=== PATIENT | male | born 1970 | race Caucasian/White ===

== ENCOUNTER 2018-05-05 12:35 | Inpatient (IN) | payer MEDICARE ==
[2018-05-05] MEDS ORDERED: OLANZapine 10 MG TAB PO (15:00)
[2018-05-05] MEDS ORDERED: MOM 30ML SUSPENSION UDC PO (15:00)
[2018-05-05] MEDS ORDERED: ACETAMINOPHEN TAB 650MG DOSE (2X325MG) PO (15:00)
[2018-05-05] MEDS ORDERED: MAALOX 30 ML SUSP *UDC PO (15:00)
[2018-05-05] MEDS: LORazepam 2 MG TAB PO (16:17)
[2018-05-05] MEDS: LORazepam 1 MG TAB PO (23:02)
[2018-05-05] MEDS: traZODone 50 MG TAB PO (23:56)
[2018-05-06] MEDS: HALOPERIDOL 5 MG TAB PO ×2 (09:50→20:30)
[2018-05-06] MEDS: TRIHEXYPHENIDYL 2 MG TAB PO ×2 (10:14→20:30)
[2018-05-06 11:26] LABS: HEMATOCRIT 45.5 % (42.0-52.0); HEMOGLOBIN 15.9 g/dl (13.5-17.5); MEAN CORPUSCULAR HEMOGLOBIN 32.3 pg (27.0-33.0); MEAN CORPUSCULAR HGB CONC 34.9 g/dl (32.0-36.5); MEAN CORPUSCULAR VOLUME 92.3 fl (80.0-96.0); PLATELET COUNT, AUTOMATED 208 10^3/uL (150-450); RED BLOOD COUNT 4.93 10^6/uL (4.30-6.10); RED CELL DISTRIBUTION WIDTH 13.2 % (11.5-14.5); WHITE BLOOD COUNT 9.5 10^3/uL (4.0-10.0)
[2018-05-06 12:04] LABS: ALBUMIN 3.4 GM/DL (3.2-5.2); ALKALINE PHOSPHATASE 65 U/L (45-117); ALT/SGPT 25 U/L (12-78); ANION GAP 6 MEQ/L (8-16); AST/SGOT 14 U/L (7-37); BILIRUBIN,TOTAL 1.9 MG/DL (0.2-1.0); BLOOD UREA NITROGEN 16 MG/DL (7-18); CALCIUM LEVEL 8.9 MG/DL (8.5-10.1); CARBON DIOXIDE LEVEL 30 MEQ/L (21-32); CHLORIDE LEVEL 103 MEQ/L (98-107); CREATININE FOR GFR 1.14 MG/DL (0.70-1.30); GLOMERULAR FILTRATION RATE > 60.0 (>60); GLUCOSE, FASTING 95 MG/DL (70-100); SODIUM LEVEL 139 MEQ/L (136-145); TOTAL PROTEIN 6.5 GM/DL (6.4-8.2)
[2018-05-06] MEDS: traZODone 50 MG TAB PO (20:30)
[2018-05-06] MEDS: PILL CRUSHER/CUTTER 1 EACH XX (20:31)
[2018-05-07] MEDS: TRIHEXYPHENIDYL 2 MG TAB PO ×2 (08:43→20:25)
[2018-05-07] MEDS: HALOPERIDOL 5 MG TAB PO ×2 (08:43→20:25)
[2018-05-07] MEDS ORDERED: LORazepam 0.5 MG TAB PO (13:00)
[2018-05-07] MEDS: traZODone 100 MG TAB PO (20:26)
[2018-05-08] MEDS: HALOPERIDOL 5 MG TAB PO ×2 (08:08→20:54)
[2018-05-08] MEDS: TRIHEXYPHENIDYL 2 MG TAB PO ×2 (08:08→20:54)
[2018-05-08] MEDS: traZODone 100 MG TAB PO (20:54)
[2018-05-09] MEDS: TRIHEXYPHENIDYL 2 MG TAB PO ×2 (08:29→21:21)
[2018-05-09] MEDS: HALOPERIDOL 5 MG TAB PO ×2 (08:29→21:21)
[2018-05-09] MEDS: traZODone 100 MG TAB PO (21:21)
[2018-05-10] MEDS: HALOPERIDOL 5 MG TAB PO ×2 (08:27→20:31)
[2018-05-10] MEDS: TRIHEXYPHENIDYL 2 MG TAB PO ×2 (08:28→20:31)
[2018-05-11] MEDS: HALOPERIDOL 5 MG TAB PO ×2 (08:10→21:11)
[2018-05-11] MEDS: TRIHEXYPHENIDYL 2 MG TAB PO ×2 (08:11→21:11)
[2018-05-11] MEDS: PILL CRUSHER/CUTTER 1 EACH XX (21:10)
[2018-05-11] MEDS: traZODone 100 MG TAB PO (21:11)
[2018-05-12] MEDS: HALOPERIDOL 5 MG TAB PO (08:02)
[2018-05-12] MEDS: TRIHEXYPHENIDYL 2 MG TAB PO (08:02)
[2018-05-12] MEDS: HALOPERIDOL DECANOATE 100 MG/ML VIAL (J1631) IM (09:56)
== END 2018-05-12 13:00 | disposition home or self-care (01) | DRG 885 ==
LOC: M ED 12:35 → M ED INP 14:54 → M PSY 17:41
DX: F25.0 Schizoaffective disorder, bipolar type (principal); F17.210 Nicotine dependence, cigarettes, uncomplicated; F12.10 Cannabis abuse, uncomplicated; Z88.0 Allergy status to penicillin; Z91.5 Personal history of self-harm; Z79.899 Other long term (current) drug therapy; Z59.9 Problem related to housing and economic circumstances, unspecified

== ENCOUNTER → 2020-05-23 | Outpatient (CLI) | payer MEDICARE ==
[~2020-05-23] MED LIST: Artane PO; HALD100I2 IM; HALD50IN4 IM; HYDR50TA70 PO; TRAZ-252 PO; TRAZ1TAB12 PO; TRIH5TAB PO
== END ==
LOC: M LABSMTC 13:15
PROVIDERS: ATTEND Family Medicine
DX: Z20.828 Contact with and (suspected) exposure to other viral communicable diseases (principal)

== ENCOUNTER 2021-07-03 17:40 | Emergency (ER) | payer MEDICARE ==
[~2021-07-03] VITALS: Ht 177.8 cm; Wt 90.9 kg
[2021-07-03 19:32] LABS: HEMATOCRIT 49.7 % (42.0-52.0); HEMOGLOBIN 18.1 g/dl (13.5-17.5); MEAN CORPUSCULAR HEMOGLOBIN 32.3 pg (27.0-33.0); MEAN CORPUSCULAR HGB CONC 36.4 g/dl (32.0-36.5); MEAN CORPUSCULAR VOLUME 88.6 fl (80.0-96.0); PLATELET COUNT, AUTOMATED 222 10^3/uL (150-450); RED BLOOD COUNT 5.61 10^6/uL (4.30-6.10); WHITE BLOOD COUNT 10.3 10^3/uL (4.0-10.0)
[2021-07-03 19:52] LABS: ACETAMINOPHEN LEVEL < 2.0 UG/ML (10.0-30.0); ALBUMIN 3.9 GM/DL (3.2-5.2); ALT/SGPT 87 U/L (12-78); BILIRUBIN,DIRECT 0.6 MG/DL (0.0-0.2); BILIRUBIN,TOTAL 2.4 MG/DL (0.2-1.0); BLOOD UREA NITROGEN 7 MG/DL (7-18); CALCIUM LEVEL 9.6 MG/DL (8.5-10.1); CARBON DIOXIDE LEVEL 24 MEQ/L (21-32); CHLORIDE LEVEL 103 MEQ/L (98-107); ETHYL ALCOHOL (ETHANOL) < 0.003 % (0.000-0.010); GLOMERULAR FILTRATION RATE > 60.0 (>56); GLUCOSE, FASTING 100 MG/DL (70-100); POTASSIUM SERUM 3.7 MEQ/L (3.5-5.1); SALICYLATE LEVEL < 1.7 MG/DL (5.0-30.0); SODIUM LEVEL 135 MEQ/L (136-145); THYROID STIMULATING HORMONE 0.917 uIU/ML (0.358-3.740); TOTAL PROTEIN 7.5 GM/DL (6.4-8.2)
[2021-07-03 20:06] LABS: AMPHETAMINES LEVEL URINE NEGATIVE (NEGATIVE); BARBITURATES URINE NEGATIVE (NEGATIVE); BENZODIAZEPINES URINE NEGATIVE (NEGATIVE); CANNABINOIDS URINE POSITIVE (NEGATIVE); COCAINE METABOLITE URINE NEGATIVE (NEGATIVE); METHADONE URINE NEGATIVE (NEGATIVE); OPIATES URINE NEGATIVE (NEGATIVE); PHENCYCLIDINE URINE NEGATIVE (NEGATIVE)
[2021-07-03] MEDS ORDERED: HOME MED LIST COMPLETE! XX SCH (20:40)
[2021-07-03] MEDS ORDERED: LORazepam 2 MG TAB PO STA (20:48)
[2021-07-03 21:34] LABS: RSV AMPLIFICATION NEGATIVE (NEGATIVE)
[2021-07-04] MEDS ORDERED: OLANZapine ORAL DISINTEGRATING TAB 5MG PO ONE (09:35)
[2021-07-04 23:02] VITALS: BP 125/82
== END 2021-07-04 23:06 ==
LOC: M ED 17:40
DX: F29 Unspecified psychosis not due to a substance or known physiological condition (principal); F20.9 Schizophrenia, unspecified; F31.9 Bipolar disorder, unspecified; F17.200 Nicotine dependence, unspecified, uncomplicated; Z88.0 Allergy status to penicillin

== ENCOUNTER 2021-08-18 20:01 | Inpatient (IN) | payer MEDICARE ==
[~2021-08-18] VITALS: Ht 177.8 cm; Wt 82.2 kg
[2021-08-18 20:57] LABS: HEMATOCRIT 46.7 % (42.0-52.0); HEMOGLOBIN 16.8 g/dl (13.5-17.5); MEAN CORPUSCULAR HEMOGLOBIN 32.9 pg (27.0-33.0); MEAN CORPUSCULAR VOLUME 91.6 fl (80.0-96.0); PLATELET COUNT, AUTOMATED 209 10^3/uL (150-450)
[2021-08-18 21:36] LABS: ACETAMINOPHEN LEVEL < 2.0 UG/ML (10.0-30.0); ALBUMIN 3.6 GM/DL (3.2-5.2); ALT/SGPT 36 U/L (12-78); BILIRUBIN,DIRECT 0.5 MG/DL (0.0-0.2); BILIRUBIN,TOTAL 2.1 MG/DL (0.2-1.0); BLOOD UREA NITROGEN 12 MG/DL (7-18); CALCIUM LEVEL 8.9 MG/DL (8.5-10.1); CARBON DIOXIDE LEVEL 28 MEQ/L (21-32); CHLORIDE LEVEL 106 MEQ/L (98-107); CREATININE FOR GFR 0.97 MG/DL (0.70-1.30); ETHYL ALCOHOL (ETHANOL) 0.026 % (0.000-0.010); GLOMERULAR FILTRATION RATE > 60.0 (>56); GLUCOSE, FASTING 91 MG/DL (70-100); POTASSIUM SERUM 3.8 MEQ/L (3.5-5.1); SALICYLATE LEVEL < 1.7 MG/DL (5.0-30.0); SODIUM LEVEL 140 MEQ/L (136-145); THYROID STIMULATING HORMONE 0.822 uIU/ML (0.358-3.740)
[2021-08-18 21:42] LABS: RSV AMPLIFICATION NEGATIVE (NEGATIVE)
[2021-08-18 22:23] LABS: LITHIUM LEVEL < 0.20 MEQ/L (0.60-1.20)
[2021-08-18] MEDS ORDERED: HOME MED LIST COMPLETE! XX SCH (22:30)
[2021-08-18 23:22] LABS: AMPHETAMINES LEVEL URINE NEGATIVE (NEGATIVE); BARBITURATES URINE NEGATIVE (NEGATIVE); BENZODIAZEPINES URINE NEGATIVE (NEGATIVE); CANNABINOIDS URINE POSITIVE (NEGATIVE); COCAINE METABOLITE URINE NEGATIVE (NEGATIVE); METHADONE URINE NEGATIVE (NEGATIVE); OPIATES URINE NEGATIVE (NEGATIVE); PHENCYCLIDINE URINE NEGATIVE (NEGATIVE)
[2021-08-19] MEDS ORDERED: MOM 30ML SUSPENSION UDC PO PRN (04:40)
[2021-08-19] MEDS ORDERED: MAALOX 30 ML SUSP *UDC PO PRN (04:40)
[2021-08-19] MEDS ORDERED: ACETAMINOPHEN TAB 650MG DOSE (2X325MG) PO PRN (04:40)
[2021-08-19 05:14] VITALS: BP 119/70
[2021-08-19] MEDS: LURASIDONE HCL 40MG TAB (LATUDA) PO SCH (08:00)
[2021-08-19] MEDS ORDERED: LORazepam 2 MG TAB PO PRN (08:50)
[2021-08-19] MEDS: MULTIVITAMINS/MINERALS THERAP 1 TAB PO SCH (09:41)
[2021-08-19] MEDS: LITHIUM CARBONATE 150 MG CAP PO SCH ×3 (09:41→20:39)
[2021-08-19] MEDS: FOLIC ACID 1 MG TAB PO SCH (09:41)
[2021-08-19] MEDS: THIAMINE 100 MG TAB PO SCH ×2 (09:41→20:39)
[2021-08-19 10:02] VITALS: BP 120/83
[2021-08-19 13:57] LABS: BASO # 0.1 10^3/uL (0.0-0.2); BASO % 0.9 % (0.0-1.0); EOS # 0.2 10^3/uL (0.0-0.5); EOS % 3.3 % (0.0-3.0); HEMATOCRIT 43.9 % (42.0-52.0); HEMOGLOBIN 15.8 g/dl (13.5-17.5); LYMPH # 1.7 10^3/uL (1.5-5.0); LYMPH % 26.9 % (24.0-44.0); MEAN CORPUSCULAR HEMOGLOBIN 33.5 pg (27.0-33.0); MONO # 0.4 10^3/uL (0.0-0.8); MONO % 6.9 % (2.0-8.0); NEUTROPHILS # 3.9 10^3/uL (1.5-8.5); NEUTROPHILS % 61.7 % (36.0-66.0); PLATELET COUNT, AUTOMATED 187 10^3/uL (150-450); RED BLOOD COUNT 4.72 10^6/uL (4.30-6.10); WHITE BLOOD COUNT 6.4 10^3/uL (4.0-10.0)
[2021-08-19 14:19] LABS: ALBUMIN 3.6 GM/DL (3.2-5.2); ALT/SGPT 35 U/L (12-78); BILIRUBIN,TOTAL 2.3 MG/DL (0.2-1.0); BLOOD UREA NITROGEN 12 MG/DL (7-18); CALCIUM LEVEL 8.9 MG/DL (8.5-10.1); CARBON DIOXIDE LEVEL 33 MEQ/L (21-32); CHLORIDE LEVEL 104 MEQ/L (98-107); GLOMERULAR FILTRATION RATE > 60.0 (>56); GLUCOSE, FASTING 94 MG/DL (70-100); MAGNESIUM LEVEL 2.1 MG/DL (1.8-2.4); POTASSIUM SERUM 3.7 MEQ/L (3.5-5.1); SODIUM LEVEL 140 MEQ/L (136-145); TOTAL PROTEIN 6.6 GM/DL (6.4-8.2)
[2021-08-19 16:20] VITALS: BP_SYST 113; BP_SYST 122; BP_DIAS 60; BP_DIAS 77
[2021-08-19 19:19] VITALS: BP 122/74
[2021-08-20 06:42] VITALS: BP 98/52
[2021-08-20] MEDS: LURASIDONE HCL 40MG TAB (LATUDA) PO SCH (08:00)
[2021-08-20 08:06] LABS: CHOLESTEROL RISK RATIO 3.106 (<5)
[2021-08-20] MEDS ORDERED: FLUBLOK(EGG FREE)(QUAD)INFLUENZA VACC 0.5ML SYRINGE 18YRS & OLDER IM ONE (09:00)
[2021-08-20] MEDS: FOLIC ACID 1 MG TAB PO SCH (09:20)
[2021-08-20] MEDS: LITHIUM CARBONATE 150 MG CAP PO SCH (09:20)
[2021-08-20] MEDS: THIAMINE 100 MG TAB PO SCH ×2 (09:20→20:40)
[2021-08-20] MEDS: MULTIVITAMINS/MINERALS THERAP 1 TAB PO SCH (09:20)
[2021-08-20] MEDS ORDERED: OLANZapine ORAL DISINTEGRATING TAB 5MG PO PRN (12:35)
[2021-08-20] MEDS: hydrOXYzine 50 MG TAB PO PRN ×2 (12:54→19:10)
[2021-08-20 13:53] VITALS: BP 135/80
[2021-08-20 13:54] VITALS: BP 135/80
[2021-08-20] MEDS: NICOTINE POLACRILEX 2 MG GUM PO PRN ×2 (16:53→19:10)
[2021-08-20 18:14] VITALS: BP 130/82
[2021-08-20] MEDS ORDERED: LITHIUM CARBONATE 300 MG CAP PO SCH (21:00)
[2021-08-21] MEDS: traZODone 50 MG TAB PO PRN (01:16)
[2021-08-21] MEDS: hydrOXYzine 50 MG TAB PO PRN ×4 (01:16→20:39)
[2021-08-21 07:01] VITALS: BP 99/69
[2021-08-21] MEDS: LURASIDONE HCL 40MG TAB (LATUDA) PO SCH (08:00)
[2021-08-21] MEDS: NICOTINE POLACRILEX 2 MG GUM PO PRN ×4 (09:02→20:39)
[2021-08-21] MEDS: LITHIUM CARBONATE 300 MG CAP PO SCH ×3 (09:02→20:39)
[2021-08-21 17:53] VITALS: BP 124/63
[2021-08-22] MEDS: hydrOXYzine 50 MG TAB PO PRN ×3 (06:41→21:38)
[2021-08-22] MEDS: NICOTINE POLACRILEX 2 MG GUM PO PRN ×4 (06:41→21:38)
[2021-08-22 07:07] VITALS: BP 123/67
[2021-08-22] MEDS: LURASIDONE HCL 40MG TAB (LATUDA) PO SCH (08:00)
[2021-08-22] MEDS: LITHIUM CARBONATE 300 MG CAP PO SCH ×3 (08:39→20:18)
[2021-08-22 18:00] VITALS: BP 138/82
[2021-08-22] MEDS: traZODone 50 MG TAB PO PRN (21:39)
[2021-08-23 06:00] VITALS: BP 131/86
[2021-08-23] MEDS: hydrOXYzine 50 MG TAB PO PRN ×3 (07:38→20:38)
[2021-08-23] MEDS: LITHIUM CARBONATE 300 MG CAP PO SCH ×4 (07:39→20:38)
[2021-08-23] MEDS: LURASIDONE HCL 40MG TAB (LATUDA) PO SCH (08:00)
[2021-08-23] MEDS: NICOTINE POLACRILEX 2 MG GUM PO PRN ×4 (12:49→20:38)
[2021-08-23 18:15] VITALS: BP 120/86
[2021-08-23] MEDS: traZODone 50 MG TAB PO PRN (20:38)
[2021-08-24 06:31] VITALS: BP 123/67
[2021-08-24] MEDS: LURASIDONE HCL 40MG TAB (LATUDA) PO SCH (08:00)
[2021-08-24] MEDS: hydrOXYzine 50 MG TAB PO PRN ×2 (09:00→19:30)
[2021-08-24] MEDS: LITHIUM CARBONATE 300 MG CAP PO SCH ×4 (09:00→20:20)
[2021-08-24] MEDS: NICOTINE POLACRILEX 2 MG GUM PO PRN ×4 (09:42→22:50)
[2021-08-24 19:02] VITALS: BP 126/86
[2021-08-25 06:24] VITALS: BP 120/72
[2021-08-25] MEDS: LURASIDONE HCL 40MG TAB (LATUDA) PO SCH (08:00)
[2021-08-25] MEDS ORDERED: NICO2GUM PO (08:22)
[2021-08-25] MEDS ORDERED: HYDR50TA70 PO (08:22)
[2021-08-25] MEDS ORDERED: TRAZ-252 PO (08:22)
[2021-08-25] MEDS ORDERED: LITH300C PO ×2 (08:22)
[2021-08-25] MEDS: LITHIUM CARBONATE 300 MG CAP PO SCH (08:40)
== END 2021-08-25 13:24 | disposition home or self-care (01) | DRG 885 ==
LOC: M ED 20:01 → M ED INP 08-19 04:37 → M PSY 08-19 05:09
PROVIDERS: ADMIT Psychiatry & Neurology Psychiatry; ATTEND Psychiatry & Neurology Psychiatry
DX: F31.9 Bipolar disorder, unspecified (principal); R45.851 Suicidal ideations; F10.10 Alcohol abuse, uncomplicated; F12.10 Cannabis abuse, uncomplicated; Z91.51 Personal history of suicidal behavior; Z62.810 Personal history of physical and sexual abuse in childhood; F17.210 Nicotine dependence, cigarettes, uncomplicated; R94.31 Abnormal electrocardiogram [ECG] [EKG]; Z20.822 Contact with and (suspected) exposure to COVID-19; Z88.0 Allergy status to penicillin; Z91.14 Patient's other noncompliance with medication regimen

== ENCOUNTER 2021-09-26 09:47 | Inpatient (IN) | payer MEDICARE ==
[~2021-09-26] VITALS: Ht 177.8 cm; Wt 81.8 kg
[~2021-09-26 09:47] MED LIST changes: +LITH300C PO; +NICO2GUM PO
[2021-09-26 10:50] LABS: HEMATOCRIT 46.6 % (42.0-52.0); HEMOGLOBIN 16.7 g/dl (13.5-17.5); MEAN CORPUSCULAR HGB CONC 35.8 g/dl (32.0-36.5); MEAN CORPUSCULAR VOLUME 92.1 fl (80.0-96.0); PLATELET COUNT, AUTOMATED 178 10^3/uL (150-450); RED BLOOD COUNT 5.06 10^6/uL (4.30-6.10); WHITE BLOOD COUNT 6.8 10^3/uL (4.0-10.0)
[2021-09-26 11:13] LABS: AMPHETAMINES LEVEL URINE NEGATIVE (NEGATIVE); BARBITURATES URINE NEGATIVE (NEGATIVE); BENZODIAZEPINES URINE NEGATIVE (NEGATIVE); CANNABINOIDS URINE POSITIVE (NEGATIVE); COCAINE METABOLITE URINE NEGATIVE (NEGATIVE); METHADONE URINE NEGATIVE (NEGATIVE); OPIATES URINE NEGATIVE (NEGATIVE); PHENCYCLIDINE URINE NEGATIVE (NEGATIVE)
[2021-09-26 11:22] LABS: BLOOD UREA NITROGEN 9 MG/DL (7-18); CARBON DIOXIDE LEVEL 30 MEQ/L (21-32); CHLORIDE LEVEL 99 MEQ/L (98-107); CREATININE FOR GFR 1.09 MG/DL (0.70-1.30); GLOMERULAR FILTRATION RATE > 60.0 (>56); GLUCOSE, FASTING 98 MG/DL (70-100); POTASSIUM SERUM 3.6 MEQ/L (3.5-5.1); SODIUM LEVEL 137 MEQ/L (136-145)
[2021-09-26 11:23] LABS: ACETAMINOPHEN LEVEL < 2.0 UG/ML (10.0-30.0); ALBUMIN 3.9 GM/DL (3.2-5.2); ALT/SGPT 141 U/L (12-78); BILIRUBIN,DIRECT 0.3 MG/DL (0.0-0.2); BILIRUBIN,TOTAL 1.1 MG/DL (0.2-1.0); ETHYL ALCOHOL (ETHANOL) < 0.003 % (0.000-0.010); SALICYLATE LEVEL < 1.7 MG/DL (5.0-30.0); TOTAL PROTEIN 7.6 GM/DL (6.4-8.2)
[2021-09-26 11:59] LABS: LITHIUM LEVEL < 0.20 MEQ/L (0.60-1.20)
[2021-09-26 12:00] LABS: RSV AMPLIFICATION NEGATIVE (NEGATIVE)
[2021-09-26] MEDS ORDERED: traZODone 50 MG TAB PO PRN (13:40)
[2021-09-26] MEDS ORDERED: MOM 30ML SUSPENSION UDC PO PRN (13:40)
[2021-09-26] MEDS ORDERED: OLANZapine 5 MG TAB PO PRN (13:40)
[2021-09-26] MEDS ORDERED: IBUPROFEN 400MG TAB PO PRN (13:40)
[2021-09-26] MEDS ORDERED: MAALOX 30 ML SUSP *UDC PO PRN (13:40)
[2021-09-26] MEDS ORDERED: HOME MED LIST COMPLETE! XX SCH (15:10)
[2021-09-26] MEDS ORDERED: LORazepam 2 MG TAB PO PRN (15:35)
[2021-09-26 15:37] VITALS: BP 119/80
[2021-09-26 15:38] VITALS: BP 119/80
[2021-09-26] MEDS: LITHIUM CARBONATE 300 MG CAP PO SCH ×2 (16:00→21:29)
[2021-09-26] MEDS ORDERED: THIAMINE 100 MG TAB PO SCH (16:00)
[2021-09-26 22:00] VITALS: BP 130/94
[2021-09-27 06:00] VITALS: BP 128/78
[2021-09-27 08:00] VITALS: BP 128/78
[2021-09-27] MEDS ORDERED: LORazepam 2 MG TAB PO PRN (08:00)
[2021-09-27] MEDS ORDERED: MULTIVITAMINS/MINERALS THERAP 1 TAB PO SCH (09:00)
[2021-09-27] MEDS: NICOTINE 21MG/24HR 1 EA TRANSDERMAL TD SCH (09:00)
[2021-09-27] MEDS ORDERED: FOLIC ACID 1 MG TAB PO SCH (09:00)
[2021-09-27] MEDS: FOLIC ACID 1 MG TAB PO SCH (09:47)
[2021-09-27] MEDS: LITHIUM CARBONATE 300 MG CAP PO SCH ×2 (09:47→20:49)
[2021-09-27] MEDS: MULTIVITAMINS/MINERALS THERAP 1 TAB PO SCH (09:47)
[2021-09-27] MEDS: OMEGA-3 1000MG CAPSULE PO SCH ×2 (09:47→20:49)
[2021-09-27] MEDS: THIAMINE 100 MG TAB PO SCH ×2 (09:47→20:49)
[2021-09-27] MEDS: PALIPERIDONE 6 MG ER TAB (INVEGA) PO SCH (11:19)
[2021-09-27 13:53] LABS: HEPATITIS B SURFACE ANTIGEN NEGATIVE (NEGATIVE)
[2021-09-27 14:15] LABS: HEPATITIS C VIRUS ABY INDEX 0.1 INDEX (<0.8)
[2021-09-27 16:00] VITALS: BP 158/97
[2021-09-27 22:00] VITALS: BP 112/73
[2021-09-28 06:00] VITALS: BP 93/59
[2021-09-28] MEDS: NICOTINE 21MG/24HR 1 EA TRANSDERMAL TD SCH (09:00)
[2021-09-28] MEDS ORDERED: LITHIUM CARBONATE 300 MG CAP PO SCH (09:00)
[2021-09-28] MEDS: OMEGA-3 1000MG CAPSULE PO SCH ×2 (09:43→20:52)
[2021-09-28] MEDS: LITHIUM CARBONATE 300 MG CAP PO SCH ×2 (09:43→20:52)
[2021-09-28] MEDS: MULTIVITAMINS/MINERALS THERAP 1 TAB PO SCH (09:43)
[2021-09-28] MEDS: PALIPERIDONE 6 MG ER TAB (INVEGA) PO SCH (09:43)
[2021-09-28] MEDS: THIAMINE 100 MG TAB PO SCH ×2 (09:43→20:52)
[2021-09-28] MEDS: FOLIC ACID 1 MG TAB PO SCH (09:43)
[2021-09-28 14:00] VITALS: BP 139/89
[2021-09-28] MEDS ORDERED: CEPACOL LOZENGE PO PRN (17:30)
[2021-09-29] MEDS: NICOTINE 21MG/24HR 1 EA TRANSDERMAL TD SCH (09:00)
[2021-09-29] MEDS ORDERED: PALIPERIDONE PALMITATE 234MG/1.5ML INJ (INVEGA)(FREE PSY INPT ONLY) IM ONE (09:00)
[2021-09-29] MEDS: PALIPERIDONE 6 MG ER TAB (INVEGA) PO SCH (10:00)
[2021-09-29] MEDS: LITHIUM CARBONATE 300 MG CAP PO SCH (10:00)
[2021-09-29] MEDS: FOLIC ACID 1 MG TAB PO SCH (10:00)
[2021-09-29] MEDS: MULTIVITAMINS/MINERALS THERAP 1 TAB PO SCH (10:01)
[2021-09-29] MEDS: THIAMINE 100 MG TAB PO SCH ×2 (10:01→20:46)
[2021-09-29] MEDS: OMEGA-3 1000MG CAPSULE PO SCH ×2 (10:01→20:46)
[2021-09-29 12:58] LABS: ALBUMIN 3.8 GM/DL (3.2-5.2); BILIRUBIN,DIRECT 0.3 MG/DL (0.0-0.2); BILIRUBIN,TOTAL 1.4 MG/DL (0.2-1.0); TOTAL PROTEIN 7.3 GM/DL (6.4-8.2)
[2021-09-29] MEDS: LITHIUM CARBONATE 150 MG CAP PO SCH (20:45)
[2021-09-30] MEDS ORDERED: ACETAMINOPHEN TAB 650MG DOSE (2X325MG) PO PRN (02:00)
[2021-09-30 06:17] VITALS: BP 111/74
[2021-09-30] MEDS: NICOTINE 21MG/24HR 1 EA TRANSDERMAL TD SCH (09:00)
[2021-09-30] MEDS: FOLIC ACID 1 MG TAB PO SCH (09:01)
[2021-09-30] MEDS: MULTIVITAMINS/MINERALS THERAP 1 TAB PO SCH (09:01)
[2021-09-30] MEDS: OMEGA-3 1000MG CAPSULE PO SCH ×2 (09:01→20:38)
[2021-09-30] MEDS: LITHIUM CARBONATE 150 MG CAP PO SCH ×2 (09:01→20:38)
[2021-10-01 06:32] VITALS: BP 124/74
[2021-10-01] MEDS: NICOTINE 21MG/24HR 1 EA TRANSDERMAL TD SCH (09:00)
[2021-10-01] MEDS: FOLIC ACID 1 MG TAB PO SCH (09:10)
[2021-10-01] MEDS: MULTIVITAMINS/MINERALS THERAP 1 TAB PO SCH (09:10)
[2021-10-01] MEDS: OMEGA-3 1000MG CAPSULE PO SCH ×2 (09:11→20:45)
[2021-10-01] MEDS: LITHIUM CARBONATE 150 MG CAP PO SCH ×2 (09:11→20:45)
[2021-10-02 06:26] VITALS: BP 116/76
[2021-10-02] MEDS: NICOTINE 21MG/24HR 1 EA TRANSDERMAL TD SCH (09:00)
[2021-10-02] MEDS: FOLIC ACID 1 MG TAB PO SCH (09:47)
[2021-10-02] MEDS: LITHIUM CARBONATE 150 MG CAP PO SCH (09:47)
[2021-10-02] MEDS: OMEGA-3 1000MG CAPSULE PO SCH ×2 (09:47→20:42)
[2021-10-02] MEDS: MULTIVITAMINS/MINERALS THERAP 1 TAB PO SCH (09:47)
[2021-10-02] MEDS ORDERED: PALIPERIDONE PALMITATE 156MG/1ML INJ(INVEGA)(FREE PSY INPT ONLY) IM ONE (11:00)
[2021-10-02 18:50] VITALS: BP 128/78
[2021-10-02] MEDS ORDERED: LITHIUM CARBONATE 150 MG CAP PO SCH (21:00)
[2021-10-03] MEDS: NICOTINE 21MG/24HR 1 EA TRANSDERMAL TD SCH (09:00)
[2021-10-03] MEDS: FOLIC ACID 1 MG TAB PO SCH (09:40)
[2021-10-03] MEDS: MULTIVITAMINS/MINERALS THERAP 1 TAB PO SCH (09:40)
[2021-10-03] MEDS: OMEGA-3 1000MG CAPSULE PO SCH ×2 (09:40→21:12)
[2021-10-03 18:45] VITALS: BP 136/84
[2021-10-03] MEDS ORDERED: LITHIUM CARBONATE 150 MG CAP PO SCH (21:00)
[2021-10-03] MEDS: PALIPERIDONE 6 MG ER TAB (INVEGA) PO SCH (21:12)
[2021-10-04] MEDS: NICOTINE 21MG/24HR 1 EA TRANSDERMAL TD SCH (09:00)
[2021-10-04] MEDS: MULTIVITAMINS/MINERALS THERAP 1 TAB PO SCH (09:46)
[2021-10-04] MEDS: FOLIC ACID 1 MG TAB PO SCH (09:46)
[2021-10-04] MEDS: OMEGA-3 1000MG CAPSULE PO SCH ×2 (09:46→20:40)
[2021-10-04] MEDS: PALIPERIDONE 6 MG ER TAB (INVEGA) PO SCH (20:40)
[2021-10-04] MEDS: LITHIUM CARBONATE 600MG CAP PO SCH (20:40)
[2021-10-04] MEDS ORDERED: OLANZapine ORAL DISINTEGRATING TAB 5MG PO ONE (23:00)
[2021-10-05] MEDS: NICOTINE 21MG/24HR 1 EA TRANSDERMAL TD SCH (09:00)
[2021-10-05] MEDS: OMEGA-3 1000MG CAPSULE PO SCH ×2 (10:08→20:44)
[2021-10-05] MEDS: MULTIVITAMINS/MINERALS THERAP 1 TAB PO SCH (10:08)
[2021-10-05] MEDS: FOLIC ACID 1 MG TAB PO SCH (10:08)
[2021-10-05] MEDS: LITHIUM CARBONATE 600MG CAP PO SCH (20:44)
[2021-10-05] MEDS: PALIPERIDONE 6 MG ER TAB (INVEGA) PO SCH (20:44)
[2021-10-06] MEDS: MULTIVITAMINS/MINERALS THERAP 1 TAB PO SCH (08:45)
[2021-10-06] MEDS: LITHIUM CARBONATE 300 MG CAP PO SCH (08:45)
[2021-10-06] MEDS: OMEGA-3 1000MG CAPSULE PO SCH ×2 (08:45→21:06)
[2021-10-06] MEDS: FOLIC ACID 1 MG TAB PO SCH (08:45)
[2021-10-06] MEDS: NICOTINE 21MG/24HR 1 EA TRANSDERMAL TD SCH (08:46)
[2021-10-06] MEDS: LITHIUM CARBONATE 600MG CAP PO SCH (21:06)
[2021-10-06] MEDS: PALIPERIDONE 6 MG ER TAB (INVEGA) PO SCH (21:06)
[2021-10-07 07:09] VITALS: BP 117/77
[2021-10-07] MEDS: FOLIC ACID 1 MG TAB PO SCH (08:33)
[2021-10-07] MEDS: MULTIVITAMINS/MINERALS THERAP 1 TAB PO SCH (08:33)
[2021-10-07] MEDS: LITHIUM CARBONATE 300 MG CAP PO SCH (08:34)
[2021-10-07] MEDS: OMEGA-3 1000MG CAPSULE PO SCH ×2 (08:34→20:22)
[2021-10-07] MEDS: NICOTINE 21MG/24HR 1 EA TRANSDERMAL TD SCH (08:34)
[2021-10-07 18:11] VITALS: BP 124/66
[2021-10-07] MEDS: LITHIUM CARBONATE 600MG CAP PO SCH (20:22)
[2021-10-07] MEDS: PALIPERIDONE 6 MG ER TAB (INVEGA) PO SCH (20:22)
[2021-10-08 06:28] VITALS: BP 121/72
[2021-10-08] MEDS: LITHIUM CARBONATE 300 MG CAP PO SCH (08:24)
[2021-10-08] MEDS: OMEGA-3 1000MG CAPSULE PO SCH ×2 (08:24→20:58)
[2021-10-08] MEDS: MULTIVITAMINS/MINERALS THERAP 1 TAB PO SCH (08:24)
[2021-10-08] MEDS: FOLIC ACID 1 MG TAB PO SCH (08:24)
[2021-10-08] MEDS: NICOTINE 21MG/24HR 1 EA TRANSDERMAL TD SCH (08:24)
[2021-10-08 18:14] VITALS: BP 130/74
[2021-10-08] MEDS: LITHIUM CARBONATE 600MG CAP PO SCH (20:58)
[2021-10-08] MEDS: PALIPERIDONE 6 MG ER TAB (INVEGA) PO SCH (20:58)
[2021-10-09 06:37] VITALS: BP 117/75
[2021-10-09] MEDS: NICOTINE 21MG/24HR 1 EA TRANSDERMAL TD SCH (08:17)
[2021-10-09] MEDS: FOLIC ACID 1 MG TAB PO SCH (08:19)
[2021-10-09] MEDS: OMEGA-3 1000MG CAPSULE PO SCH ×2 (08:19→20:56)
[2021-10-09] MEDS: MULTIVITAMINS/MINERALS THERAP 1 TAB PO SCH (08:19)
[2021-10-09] MEDS: LITHIUM CARBONATE 300 MG CAP PO SCH (08:19)
[2021-10-09] MEDS: NALTREXONE 50 MG TAB PO SCH (13:07)
[2021-10-09 16:09] VITALS: BP 123/67
[2021-10-09] MEDS: PALIPERIDONE 6 MG ER TAB (INVEGA) PO SCH (20:56)
[2021-10-09] MEDS: LITHIUM CARBONATE 600MG CAP PO SCH (20:56)
[2021-10-10 06:15] VITALS: BP 134/70
[2021-10-10] MEDS: LITHIUM CARBONATE 300 MG CAP PO SCH (08:28)
[2021-10-10] MEDS: NALTREXONE 50 MG TAB PO SCH (08:28)
[2021-10-10] MEDS: OMEGA-3 1000MG CAPSULE PO SCH ×2 (08:28→20:46)
[2021-10-10] MEDS: MULTIVITAMINS/MINERALS THERAP 1 TAB PO SCH (08:28)
[2021-10-10] MEDS: FOLIC ACID 1 MG TAB PO SCH (08:28)
[2021-10-10] MEDS: NICOTINE 21MG/24HR 1 EA TRANSDERMAL TD SCH (08:30)
[2021-10-10 17:06] VITALS: BP_SYST 113; BP_SYST 116; BP_DIAS 66; BP_DIAS 76
[2021-10-10] MEDS: PALIPERIDONE 6 MG ER TAB (INVEGA) PO SCH (20:46)
[2021-10-10] MEDS: LITHIUM CARBONATE 600MG CAP PO SCH (20:46)
[2021-10-11 06:31] VITALS: BP 110/81
[2021-10-11] MEDS: OMEGA-3 1000MG CAPSULE PO SCH (08:21)
[2021-10-11] MEDS: LITHIUM CARBONATE 300 MG CAP PO SCH (08:21)
[2021-10-11] MEDS: MULTIVITAMINS/MINERALS THERAP 1 TAB PO SCH (08:21)
[2021-10-11] MEDS: FOLIC ACID 1 MG TAB PO SCH (08:21)
[2021-10-11] MEDS: NALTREXONE 50 MG TAB PO SCH ×2 (08:22→11:17)
[2021-10-11] MEDS: NICOTINE 21MG/24HR 1 EA TRANSDERMAL TD SCH (08:22)
[2021-10-11] MEDS ORDERED: FISH1CAP26 PO (09:05)
[2021-10-11] MEDS ORDERED: LITH600C PO (09:05)
[2021-10-11] MEDS ORDERED: NICO21PAT TD (09:05)
[2021-10-11] MEDS ORDERED: LITH300C PO (09:05)
[2021-10-11] MEDS ORDERED: PALI1TAB3 PO (09:05)
[2021-10-11] MEDS ORDERED: NALT50TA4 PO (09:05)
[2021-10-11] MEDS ORDERED: INVE234I IM (09:06)
== END 2021-10-11 12:04 | disposition home or self-care (01) | DRG 885 ==
LOC: M ED 09:47 → M ED INP 13:36 → M PSY 15:22
PROVIDERS: ADMIT Student in an Organized Health Care Education/Training Program; ATTEND Student in an Organized Health Care Education/Training Program
DX: F31.10 Bipolar disorder, current episode manic without psychotic features, unspecified (principal); R45.851 Suicidal ideations; F10.10 Alcohol abuse, uncomplicated; F12.90 Cannabis use, unspecified, uncomplicated; Z79.899 Other long term (current) drug therapy; Z88.0 Allergy status to penicillin; F17.200 Nicotine dependence, unspecified, uncomplicated

== ENCOUNTER 2021-10-25 03:30 | Emergency (ER) | payer MEDICARE ==
[~2021-10-25] VITALS: Ht 177.8 cm; Wt 94.8 kg
[~2021-10-25 03:30] MED LIST changes: +FISH1CAP26 PO; +INVE234I IM; +LITH600C PO; +NALT50TA4 PO; +NICO21PAT TD; +PALI1TAB3 PO
[2021-10-25 03:31] VITALS: BP 140/88
== END 2021-10-25 04:25 | disposition left against medical advice (07) ==
LOC: M ED 03:30
DX: Z53.21 Procedure and treatment not carried out due to patient leaving prior to being seen by health care provider (principal)

== ENCOUNTER 2021-12-13 21:28 | Inpatient (IN) | payer MEDICARE ==
[~2021-12-13] VITALS: Ht 177.8 cm; Wt 81.8 kg
[2021-12-13 21:58] LABS: HEMATOCRIT 44.7 % (42.0-52.0); HEMOGLOBIN 16.2 g/dl (13.5-17.5); MEAN CORPUSCULAR HEMOGLOBIN 32.9 pg (27.0-33.0); MEAN CORPUSCULAR HGB CONC 36.2 g/dl (32.0-36.5); MEAN CORPUSCULAR VOLUME 90.7 fl (80.0-96.0); PLATELET COUNT, AUTOMATED 198 10^3/uL (150-450); RED BLOOD COUNT 4.93 10^6/uL (4.30-6.10); WHITE BLOOD COUNT 8.2 10^3/uL (4.0-10.0)
[2021-12-13 22:28] LABS: AMPHETAMINES LEVEL URINE NEGATIVE (NEGATIVE); BARBITURATES URINE NEGATIVE (NEGATIVE); BENZODIAZEPINES URINE NEGATIVE (NEGATIVE); CANNABINOIDS URINE NEGATIVE (NEGATIVE); COCAINE METABOLITE URINE NEGATIVE (NEGATIVE); METHADONE URINE NEGATIVE (NEGATIVE); OPIATES URINE NEGATIVE (NEGATIVE); PHENCYCLIDINE URINE NEGATIVE (NEGATIVE)
[2021-12-13 22:33] LABS: RSV AMPLIFICATION NEGATIVE (NEGATIVE)
[2021-12-13 22:41] LABS: ACETAMINOPHEN LEVEL < 2.0 UG/ML (10.0-30.0); ALBUMIN 3.8 GM/DL (3.2-5.2); ALT/SGPT 46 U/L (12-78); BILIRUBIN,DIRECT 0.2 MG/DL (0.0-0.2); BILIRUBIN,TOTAL 1.1 MG/DL (0.2-1.0); BLOOD UREA NITROGEN 8 MG/DL (7-18); CARBON DIOXIDE LEVEL 23 MEQ/L (21-32); CHLORIDE LEVEL 107 MEQ/L (98-107); CREATININE FOR GFR 0.98 MG/DL (0.70-1.30); ETHYL ALCOHOL (ETHANOL) 0.211 % (0.000-0.010); GLOMERULAR FILTRATION RATE > 60.0 (>56); GLUCOSE, FASTING 94 MG/DL (70-100); LITHIUM LEVEL < 0.20 MEQ/L (0.60-1.20); POTASSIUM SERUM 3.8 MEQ/L (3.5-5.1); SALICYLATE LEVEL < 1.7 MG/DL (5.0-30.0); SODIUM LEVEL 140 MEQ/L (136-145); THYROID STIMULATING HORMONE 0.895 uIU/ML (0.358-3.740); TOTAL PROTEIN 7.6 GM/DL (6.4-8.2)
[2021-12-13] MEDS ORDERED: HALO10TA20 PO (23:42)
[2021-12-13] MEDS ORDERED: TRIH2TAB3 PO (23:42)
[2021-12-13] MEDS ORDERED: HOME MED LIST COMPLETE! XX SCH (23:45)
[2021-12-14] MEDS ORDERED: LORazepam 2 MG TAB PO PRN ×2 (07:40→14:00)
[2021-12-14] MEDS ORDERED: MULTIVITAMINS/MINERALS THERAP 1 TAB PO SCH (09:00)
[2021-12-14] MEDS ORDERED: THIAMINE 100 MG TAB PO SCH (09:00)
[2021-12-14] MEDS ORDERED: TRIHEXYPHENIDYL 2 MG TAB PO SCH (09:00)
[2021-12-14] MEDS ORDERED: FOLIC ACID 1 MG TAB PO SCH (09:00)
[2021-12-14] MEDS ORDERED: NICOTINE 21MG/24HR 1 EA TRANSDERMAL TD SCH (09:00)
[2021-12-14] MEDS ORDERED: MOM 30ML SUSPENSION UDC PO PRN (14:00)
[2021-12-14] MEDS ORDERED: MAALOX 30 ML SUSP *UDC PO PRN (14:00)
[2021-12-14] MEDS ORDERED: traZODone 50 MG TAB PO PRN (14:00)
[2021-12-14 15:31] VITALS: BP 129/72
[2021-12-14] MEDS: THIAMINE 100 MG TAB PO SCH (20:01)
[2021-12-14] MEDS: NICOTINE POLACRILEX 2 MG GUM PO PRN (20:09)
[2021-12-14 23:30] VITALS: BP 129/72
[2021-12-15] MEDS: NICOTINE POLACRILEX 2 MG GUM PO PRN ×5 (00:08→19:48)
[2021-12-15 06:29] VITALS: BP 102/60
[2021-12-15 06:30] VITALS: BP 102/60
[2021-12-15] MEDS: THIAMINE 100 MG TAB PO SCH (08:09)
[2021-12-15] MEDS: TRIHEXYPHENIDYL 2 MG TAB PO SCH (08:11)
[2021-12-15] MEDS: LORazepam 1 MG TAB PO PRN ×3 (08:13→21:40)
[2021-12-15] MEDS ORDERED: FOLIC ACID 1 MG TAB PO SCH (09:00)
[2021-12-15] MEDS ORDERED: MULTIVITAMINS/MINERALS THERAP 1 TAB PO SCH (09:00)
[2021-12-15] MEDS ORDERED: BENZTROPINE 1 MG TAB PO PRN (10:10)
[2021-12-15 14:30] VITALS: BP 134/81
[2021-12-15 17:43] VITALS: BP 134/81
[2021-12-15] MEDS: NEOSPORIN TOP OINT 15GM TOP SCH (20:11)
[2021-12-16] MEDS: NICOTINE POLACRILEX 2 MG GUM PO PRN ×5 (06:46→22:20)
[2021-12-16 06:52] VITALS: BP 102/71
[2021-12-16] MEDS: TRIHEXYPHENIDYL 2 MG TAB PO SCH (08:04)
[2021-12-16] MEDS: NEOSPORIN TOP OINT 15GM TOP SCH ×2 (08:05→18:19)
[2021-12-16] MEDS: LORazepam 1 MG TAB PO PRN ×3 (08:09→20:20)
[2021-12-16 09:47] LABS: CHOLESTEROL RISK RATIO 2.771 (<5)
[2021-12-16] MEDS ORDERED: HALOPERIDOL DECANOATE 100 MG/ML VIAL (J1631) IM ONE ×2 (10:10→19:00)
[2021-12-16 17:12] VITALS: BP 121/81
[2021-12-17 06:46] VITALS: BP 100/65
[2021-12-17] MEDS: LORazepam 1 MG TAB PO PRN ×2 (10:32→17:42)
[2021-12-17] MEDS: PILL CUTTER 1 EACH XX PRN (10:32)
[2021-12-17] MEDS: NEOSPORIN TOP OINT 15GM TOP SCH ×2 (10:33→20:08)
[2021-12-17] MEDS: TRIHEXYPHENIDYL 2 MG TAB PO SCH (10:33)
[2021-12-17] MEDS: NICOTINE POLACRILEX 2 MG GUM PO PRN ×3 (13:12→23:23)
[2021-12-17 18:26] VITALS: BP 115/75
[2021-12-17] MEDS: carBAMazepine XR 200 MG TAB PO SCH (20:09)
[2021-12-18] MEDS: LORazepam 1 MG TAB PO PRN ×3 (00:59→20:52)
[2021-12-18] MEDS: NICOTINE POLACRILEX 2 MG GUM PO PRN ×3 (06:52→20:47)
[2021-12-18 07:19] VITALS: BP 111/59
[2021-12-18] MEDS: TRIHEXYPHENIDYL 2 MG TAB PO SCH (07:35)
[2021-12-18] MEDS: carBAMazepine XR 200 MG TAB PO SCH ×2 (07:35→20:47)
[2021-12-18] MEDS: PILL CUTTER 1 EACH XX PRN (07:35)
[2021-12-18] MEDS: NEOSPORIN TOP OINT 15GM TOP SCH ×2 (07:35→20:47)
[2021-12-18] MEDS: NALTREXONE 50 MG TAB PO SCH (11:31)
[2021-12-18 18:18] VITALS: BP 111/67
[2021-12-19] MEDS: carBAMazepine XR 200 MG TAB PO SCH ×2 (08:54→20:06)
[2021-12-19] MEDS: NALTREXONE 50 MG TAB PO SCH (08:54)
[2021-12-19] MEDS: TRIHEXYPHENIDYL 2 MG TAB PO SCH (08:55)
[2021-12-19] MEDS: PILL CUTTER 1 EACH XX PRN (08:55)
[2021-12-19] MEDS: NEOSPORIN TOP OINT 15GM TOP SCH ×2 (08:57→20:07)
[2021-12-19] MEDS: NICOTINE POLACRILEX 2 MG GUM PO PRN ×3 (10:26→22:05)
[2021-12-19] MEDS: LORazepam 1 MG TAB PO PRN ×2 (15:07→22:04)
[2021-12-19 18:00] VITALS: BP 112/70
[2021-12-20 06:39] VITALS: BP 109/65
[2021-12-20] MEDS: NEOSPORIN TOP OINT 15GM TOP SCH ×2 (09:00→20:46)
[2021-12-20] MEDS: PILL CUTTER 1 EACH XX PRN (09:21)
[2021-12-20] MEDS: carBAMazepine XR 200 MG TAB PO SCH ×2 (09:21→20:47)
[2021-12-20] MEDS: NICOTINE POLACRILEX 2 MG GUM PO PRN ×2 (09:21→14:54)
[2021-12-20] MEDS: NALTREXONE 50 MG TAB PO SCH (09:21)
[2021-12-20] MEDS: TRIHEXYPHENIDYL 2 MG TAB PO SCH (09:22)
[2021-12-20] MEDS: LORazepam 1 MG TAB PO PRN ×2 (14:54→21:14)
[2021-12-20 18:00] VITALS: BP 120/68
[2021-12-21 07:00] VITALS: BP 104/73
[2021-12-21] MEDS: NALTREXONE 50 MG TAB PO SCH (08:18)
[2021-12-21] MEDS: NICOTINE POLACRILEX 2 MG GUM PO PRN ×3 (08:18→18:19)
[2021-12-21] MEDS: PILL CUTTER 1 EACH XX PRN (08:18)
[2021-12-21] MEDS: carBAMazepine XR 200 MG TAB PO SCH ×2 (08:19→20:04)
[2021-12-21] MEDS: TRIHEXYPHENIDYL 2 MG TAB PO SCH (08:19)
[2021-12-21] MEDS: NEOSPORIN TOP OINT 15GM TOP SCH ×2 (08:20→20:04)
[2021-12-21 18:41] VITALS: BP 138/78
[2021-12-22 06:21] VITALS: BP 139/61
[2021-12-22] MEDS: NEOSPORIN TOP OINT 15GM TOP SCH (07:58)
[2021-12-22] MEDS: TRIHEXYPHENIDYL 2 MG TAB PO SCH (08:01)
[2021-12-22] MEDS: carBAMazepine XR 200 MG TAB PO SCH (08:01)
[2021-12-22] MEDS: NALTREXONE 50 MG TAB PO SCH (08:01)
[2021-12-22] MEDS: PILL CUTTER 1 EACH XX PRN (08:01)
[2021-12-22] MEDS ORDERED: HALO5TAB33 PO (09:23)
[2021-12-22] MEDS ORDERED: NICO2GUM PO (09:23)
[2021-12-22] MEDS ORDERED: CARB20TAXR PO (09:23)
[2021-12-22] MEDS ORDERED: TRAZ-252 PO (09:23)
[2021-12-22] MEDS ORDERED: NALT50TA4 PO (09:23)
[2021-12-22] MEDS ORDERED: HALD50IN4 IM (09:24)
== END 2021-12-22 10:45 | disposition home or self-care (01) | DRG 885 ==
LOC: M ED 21:28 → M ED INP 12-14 13:59 → M PSY 12-14 15:21
PROVIDERS: ADMIT Student in an Organized Health Care Education/Training Program; ATTEND Student in an Organized Health Care Education/Training Program
DX: F31.9 Bipolar disorder, unspecified (principal); F10.221 Alcohol dependence with intoxication delirium; R45.851 Suicidal ideations; F17.210 Nicotine dependence, cigarettes, uncomplicated; Z91.14 Patient's other noncompliance with medication regimen; Z88.0 Allergy status to penicillin; Z90.49 Acquired absence of other specified parts of digestive tract; S60.132A Contusion of left middle finger with damage to nail, initial encounter; X58.XXXA Exposure to other specified factors, initial encounter; Y92.9 Unspecified place or not applicable; Z20.822 Contact with and (suspected) exposure to COVID-19

== ENCOUNTER 2022-03-23 16:50 | Inpatient (IN) | payer MEDICARE ==
[~2022-03-23] VITALS: Ht 177.8 cm; Wt 93.7 kg
[~2022-03-23 16:50] MED LIST changes: +CARB20TAXR PO; +FOLIC ACID 1MG TAB PO SCH; +HALO10TA20 PO; +HALO5TAB33 PO; +MULTIVITAMINS/MINERALS THERAP 1 TAB PO SCH; +TRIH2TAB3 PO
[2022-03-23] MEDS ORDERED: OXAZEPAM 15MG CAP PO ONE (17:20)
[2022-03-23] MEDS ORDERED: THIAMINE 200MG 2ML VIAL IM ONE (17:20)
[2022-03-23 17:31] LABS: VENOUS BASE EXCESS 3.8 (-2.0-2.0); VENOUS HCO3 27.4 MEQ/L (23.0-27.0); VENOUS O2 SATURATION 89.3 % (60.0-80.0); VENOUS PARTIAL PRESSURE CO2 38.3 mmHg (38.0-50.0); VENOUS PARTIAL PRESSURE O2 50.7 mmHg (30.0-50.0); VENOUS PH 7.473 UNITS (7.330-7.430); VENOUS STANDARD HCO3 27.6 MEQ/L; VENOUS TOTAL CO2 28.6 MEQ/L (24.0-28.0)
[2022-03-23] MEDS: LORazepam 2 MG TAB PO PRN ×2 (17:47→22:35)
[2022-03-23 17:49] LABS: BASO # 0.1 10^3/uL (0.0-0.2); BASO % 0.5 % (0.0-1.0); EOS # 0.1 10^3/uL (0.0-0.5); EOS % 0.9 % (0.0-3.0); HEMATOCRIT 47.8 % (42.0-52.0); HEMOGLOBIN 17.4 g/dl (13.5-17.5); LYMPH # 1.7 10^3/uL (1.5-5.0); LYMPH % 17.6 % (24.0-44.0); MEAN CORPUSCULAR HEMOGLOBIN 32.5 pg (27.0-33.0); MEAN CORPUSCULAR HGB CONC 36.4 g/dl (32.0-36.5); MEAN CORPUSCULAR VOLUME 89.2 fl (80.0-96.0); MONO # 0.7 10^3/uL (0.0-0.8); MONO % 7.2 % (2.0-8.0); NEUTROPHILS # 6.9 10^3/uL (1.5-8.5); NEUTROPHILS % 73.5 % (36.0-66.0); PLATELET COUNT, AUTOMATED 211 10^3/uL (150-450); RED BLOOD COUNT 5.36 10^6/uL (4.30-6.10); WHITE BLOOD COUNT 9.4 10^3/uL (4.0-10.0)
[2022-03-23] MEDS ORDERED: THIAMINE 100 MG TAB PO SCH (18:00)
[2022-03-23 18:29] LABS: ACETAMINOPHEN LEVEL < 2.0 UG/ML (10.0-30.0); ALBUMIN 3.9 GM/DL (3.2-5.2); ALT/SGPT 132 U/L (12-78); BILIRUBIN,DIRECT 0.6 MG/DL (0.0-0.2); BILIRUBIN,TOTAL 2.4 MG/DL (0.2-1.0); BLOOD UREA NITROGEN 9 MG/DL (7-18); CALCIUM LEVEL 9.3 MG/DL (8.5-10.1); CARBON DIOXIDE LEVEL 28 MEQ/L (21-32); CHLORIDE LEVEL 101 MEQ/L (98-107); CREATININE FOR GFR 1.12 MG/DL (0.70-1.30); ETHYL ALCOHOL (ETHANOL) < 0.003 % (0.000-0.010); GLOMERULAR FILTRATION RATE > 60.0 (>56); GLUCOSE, FASTING 106 MG/DL (70-100); POTASSIUM SERUM 3.8 MEQ/L (3.5-5.1); SALICYLATE LEVEL < 1.7 MG/DL (5.0-30.0); SODIUM LEVEL 135 MEQ/L (136-145); TOTAL PROTEIN 7.9 GM/DL (6.4-8.2)
[2022-03-23] MEDS ORDERED: ISOVUE-370 76% 100ML VIAL As Ordered ONE (18:33)
[2022-03-23] MEDS ORDERED: HALD50IN4 IM (18:44)
[2022-03-23] MEDS ORDERED: HOME MED LIST COMPLETE! XX SCH (18:45)
[2022-03-23 19:02] LABS: OSMOLALITY SERUM 285 MOSM/KG (275-295)
[2022-03-23 19:30] LABS: RSV AMPLIFICATION NEGATIVE (NEGATIVE)
[2022-03-23 21:21] LABS: AMPHETAMINES LEVEL URINE NEGATIVE (NEGATIVE); BARBITURATES URINE NEGATIVE (NEGATIVE); BENZODIAZEPINES URINE NEGATIVE (NEGATIVE); CANNABINOIDS URINE POSITIVE (NEGATIVE); COCAINE METABOLITE URINE NEGATIVE (NEGATIVE); METHADONE URINE NEGATIVE (NEGATIVE); OPIATES URINE NEGATIVE (NEGATIVE); PHENCYCLIDINE URINE NEGATIVE (NEGATIVE)
[2022-03-23] MEDS ORDERED: MOM 30ML SUSPENSION UDC PO PRN (22:30)
[2022-03-23] MEDS ORDERED: MAALOX 30 ML SUSP *UDC PO PRN (22:30)
[2022-03-23] MEDS ORDERED: ACETAMINOPHEN TAB 650MG DOSE (2X325MG) PO PRN (22:30)
[2022-03-24 01:10] VITALS: BP 128/81
[2022-03-24] MEDS ORDERED: LORazepam 2 MG TAB PO PRN (01:50)
[2022-03-24 05:10] VITALS: BP 121/73
[2022-03-24] MEDS: FOLIC ACID 1MG TAB PO SCH (09:08)
[2022-03-24] MEDS: THIAMINE 100 MG TAB PO SCH ×2 (09:08→19:54)
[2022-03-24] MEDS: MULTIVITAMINS/MINERALS THERAP 1 TAB PO SCH (09:09)
[2022-03-24 10:02] LABS: PROTHROMBIN TIME 13.4 SECONDS (12.5-14.5)
[2022-03-24 10:03] LABS: PARTIAL THROMBOPLASTIN TIME 32.3 SECONDS (24.8-34.2)
[2022-03-24 10:32] LABS: ALBUMIN 3.3 GM/DL (3.2-5.2); ALT/SGPT 104 U/L (12-78); BILIRUBIN,TOTAL 3.2 MG/DL (0.2-1.0); BLOOD UREA NITROGEN 11 MG/DL (7-18); CALCIUM LEVEL 9.3 MG/DL (8.5-10.1); CARBON DIOXIDE LEVEL 29 MEQ/L (21-32); CHLORIDE LEVEL 103 MEQ/L (98-107); CREATININE FOR GFR 1.06 MG/DL (0.70-1.30); GLOMERULAR FILTRATION RATE > 60.0 (>56); GLUCOSE, FASTING 97 MG/DL (70-100); POTASSIUM SERUM 3.8 MEQ/L (3.5-5.1); SODIUM LEVEL 136 MEQ/L (136-145); TOTAL PROTEIN 6.7 GM/DL (6.4-8.2)
[2022-03-24 13:00] VITALS: BP 137/86
[2022-03-24 18:00] VITALS: BP 140/93
[2022-03-24] MEDS: traZODone 50 MG TAB PO PRN (19:54)
[2022-03-24 21:00] VITALS: BP 132/86
[2022-03-25 05:00] VITALS: BP_SYST 123; BP_DIAS 73; BP_DIAS 78
[2022-03-25] MEDS: MULTIVITAMINS/MINERALS THERAP 1 TAB PO SCH (07:16)
[2022-03-25] MEDS: THIAMINE 100 MG TAB PO SCH ×2 (07:16→20:04)
[2022-03-25] MEDS: FOLIC ACID 1MG TAB PO SCH (07:16)
[2022-03-25 18:31] VITALS: BP 123/73
[2022-03-25] MEDS: traZODone 50 MG TAB PO PRN (20:04)
[2022-03-26 06:01] VITALS: BP 133/83
[2022-03-26 08:33] LABS: ALBUMIN 3.5 GM/DL (3.2-5.2); ALT/SGPT 107 U/L (12-78); BILIRUBIN,TOTAL 2.7 MG/DL (0.2-1.0); BLOOD UREA NITROGEN 10 MG/DL (7-18); CALCIUM LEVEL 9.1 MG/DL (8.5-10.1); CARBON DIOXIDE LEVEL 27 MEQ/L (21-32); CHLORIDE LEVEL 105 MEQ/L (98-107); CREATININE FOR GFR 1.14 MG/DL (0.70-1.30); GLOMERULAR FILTRATION RATE > 60.0 (>56); GLUCOSE, FASTING 96 MG/DL (70-100); POTASSIUM SERUM 3.7 MEQ/L (3.5-5.1); SODIUM LEVEL 137 MEQ/L (136-145); TOTAL PROTEIN 6.7 GM/DL (6.4-8.2)
[2022-03-26] MEDS: THIAMINE 100 MG TAB PO SCH ×2 (08:51→20:21)
[2022-03-26] MEDS: MULTIVITAMINS/MINERALS THERAP 1 TAB PO SCH (08:51)
[2022-03-26] MEDS: FOLIC ACID 1MG TAB PO SCH (08:51)
[2022-03-26 16:21] VITALS: BP 120/81
[2022-03-26] MEDS: traZODone 50 MG TAB PO PRN (20:21)
[2022-03-27 06:18] VITALS: BP 124/69
[2022-03-27] MEDS: FOLIC ACID 1MG TAB PO SCH (08:20)
[2022-03-27] MEDS: MULTIVITAMINS/MINERALS THERAP 1 TAB PO SCH (08:20)
[2022-03-27] MEDS ORDERED: HALOPERIDOL DECANOATE 100 MG/ML VIAL (J1631) IM ONE (11:15)
[2022-03-27] MEDS ORDERED: BENZTROPINE 1 MG TAB PO PRN (11:15)
[2022-03-27 16:17] VITALS: BP 108/65
[2022-03-27] MEDS: traZODone 50 MG TAB PO PRN (20:11)
[2022-03-28 06:09] VITALS: BP 101/59
[2022-03-28] MEDS: FOLIC ACID 1MG TAB PO SCH (08:08)
[2022-03-28] MEDS: MULTIVITAMINS/MINERALS THERAP 1 TAB PO SCH (08:08)
[2022-03-28] MEDS ORDERED: HALD50IN4 IM (09:25)
[2022-03-28] MEDS ORDERED: BENZ-52 PO (09:25)
[2022-03-28] MEDS ORDERED: VITMTA PO (09:25)
[2022-03-28] MEDS ORDERED: HALO5TAB33 PO (09:25)
[2022-03-28] MEDS ORDERED: FOLI1TAB11 PO (09:25)
[2022-03-28] MEDS ORDERED: TRAZ-252 PO (09:25)
== END 2022-03-28 11:56 | disposition home or self-care (01) | DRG 885 ==
LOC: M ED 17:42 → M ED INP 22:28 → M PSY 03-24 01:10
PROVIDERS: ADMIT Psychiatry & Neurology Psychiatry; ATTEND Psychiatry & Neurology Psychiatry
DX: F25.9 Schizoaffective disorder, unspecified (principal); F10.10 Alcohol abuse, uncomplicated; Z88.0 Allergy status to penicillin; Z79.899 Other long term (current) drug therapy; F17.200 Nicotine dependence, unspecified, uncomplicated; R74.01 Elevation of levels of liver transaminase levels; K76.0 Fatty (change of) liver, not elsewhere classified; K82.8 Other specified diseases of gallbladder; Z62.819 Personal history of unspecified abuse in childhood; Z91.199 Patient's noncompliance with other medical treatment and regimen due to unspecified reason